=== PATIENT | female | born 1985 | race Caucasian/White ===

== ENCOUNTER → 2017-10-29 15:17 | Outpatient (CLI) | payer SELFPAY ==
[2017-10-29 18:23] LABS: Group B Strep DNA By PCR Negative (Negative); Internal Control PASS; Probe Check PASS; Specimen Processing Control PASS
== END ==
PROVIDERS: Visit Provider Obstetrics & Gynecology
DX: Z36.85 Encounter for antenatal screening for Streptococcus B (principal)
CPT/HCPCS: 87081; 87653

== ENCOUNTER 2017-11-18 22:28 | Inpatient (IN) | payer SELFPAY ==
[2017-11-18] MEDS: Lactated Ringers 1,000 ML 50 ML IV (22:52)
[2017-11-18 22:54] VITALS: BMI 23.8
[2017-11-18 23:33] LABS: Hematocrit 39.5 % (37-47); Hemoglobin 13.8 g/dl (12.0-15.0); Mean Corp Hgb Conc 34.9 g/gl (32-36); Mean Corpuscular Hgb 31.7 pg (27.0-32.0); Mean Corpuscular Volume 90.6 fL (81-99); Mean Platelet Vol. 10.1 fl (6.2-12.0); Platelet Count 193 K/mm3 (150-450); RBC Distribution Width CV 12.3 % (11.6-14.6); RBC Distribution Width SD 40.4 fl (35.1-43.9); Red Blood Count 4.36 M/mm3 (4.2-5.4); White Blood Count 12.9 K/mm3 (4.4-11.0)
[2017-11-18 23:37] LABS: Scan Indicated on CBC? Y/N NO
[2017-11-19] MEDS: Oxytocin 30 units/NS 500 ml 30 UNITS/500 ML IV.SOLN 334 UNITS IV (00:24)
--- NOTE | 2017-11-19 00:46 | PCM.OB.VAG ---
- Problem List (1) 39 weeks gestation of Status: Acute (2) (vaginal after ) Status: Acute Vaginal Delivery Maternal Presentation: Active Labor Amniotic Membrane Rupture Type: Spontaneous Rupture of Membrane time: 11/18/17 2322h Amniotic Fluid Description: Clear Final MALU: 11/22/17 Final MALU Source: [place] <20 weeks Gestational age: 39 Weeks and 4 Days Date of Procedure: 11/19/17 Pre-Operative Diagnosis: 39 4/7wga, labor, SGA Post-Operative Diagnosis: 39 4/7wga, labor, SGA Surgery/ Procedure Performed: Spontaneous Vaginal Delivery Type of Anesthesia: Local with 1% lidocaine, - - Nitrous oxide Description of Procedure: Patient was FD and pushed to deliver a vigorous male in OA. The infant was passed to the nursery personnel and further attended. The cord was doubly clamped and cut after 5-6 minutes of life. The placenta delivered spontaneously and appeared intact on inspection with 3VC. A second degree perineal laceration was repaired with 3-0 Vicryl Rapide. Presentation: Vertex Placental Delivery Description: Spontaneous Placenta Disposition: [facility] Cord Vessel Description: 3 Vessels Nuchal Cord Compression: Without compression Cord Entanglement: None Estimated Blood Loss: 350 Infant A gender: Male (1 minute): 8 (5 minute): 9 Episiotomy Description: None Laceration: Midline, Perineal Extension/lac, 2nd degree Medications given after delivery: IV Pitocin Complications: None
[2017-11-19] MEDS: Oxytocin 30 units/NS 500 ml 30 UNITS/500 ML IV.SOLN 167 UNITS IV (00:54)
--- NOTE | 2017-11-19 01:05 | DCINST_ITS ---
Discharge Diet: No Restrictions Discharge Activity: Return to Normal Activity May resume sexual activity in: 6 weeks Lifting Restrictions: 10-20lb Call your doctor if your incision/area has: Continuous Slow Oozing, Sudden Increased Bleeding, Increased Pain/ Swelling, Increased Redness, Foul Smelling Discharge Call your doctor if you observe: Fever of 101 or Higher, Inability to urinate, Inability to have a bowel movement, Using more than one pad per hour, Shortness of breath, Chest pain, Calf discomfort, Uncontrolled pain Suture Line Care: Avoid Pulling/Pushing Cleanse incision/area with: Soap & Water Additional Instructions: If you experience any of the following, contact your healthcare provider. * Bleeding that soaks a pad every hour for 2 hours * Fever 100.4 or higher * Unrelieved incision or abdominal pain * Swelling, redness, discharge or bleeding from your incision or episiotomy site * Your incision begins to separate * Problems urinating (including inability to urinate or burning while urinating) . * Visual changes * Severe headache * Flu-like symptoms * Pain or redness in one of both of your breasts * Pain, warmth, tenderness or swelling in your legs, especially the calf area * Frequent nausea and vomiting * Symptoms of depression or anxiety If you experience any of the following, call 911 or go to the nearest Emergency Room. * Chest pain * Problems breathing * Seizure activity * Partial or complete paralysis of a body part, slurred speech, weakness or drooping of the face, or a sudden inability to walk or hold your balance Allergies/Adverse Reactions: Allergies No Known Allergies Allergy (Verified 11/18/17 22:54) Medications to take at Discharge Vit No.130/Iron/FA [ Tablet] 1 tab PO DAILY 11/18/17 Docusate Sodium [Colace] 100 mg PO BID PRN PRN #60 cap 11/19/17 Ibuprofen 800 mg PO TID PRN #30 tab 11/19/17 The following prescriptions were given: Docusate Sodium [Colace] 100 mg PO BID PRN PRN #60 cap PRN Reason: Constipation Ibuprofen 800 mg PO TID PRN #30 tab PRN Reason: Pain Please Follow Up With: Nini Chirinos MD When: 6 weeks
[2017-11-19] MEDS: Ibuprofen 600 MG Tablet PO (01:47)
[2017-11-19] MEDS: 0.9% Saline Lock 10 ML Syringe IV (02:00)
[2017-11-19 03:45] VITALS: BP 118/75; PULSE 84; RESP 16; TEMP 36.9; O2SAT 99
[2017-11-19 08:00] VITALS: BP 104/63; PULSE 85; RESP 16; TEMP 37.1
[2017-11-19 12:00] VITALS: BP 112/65; PULSE 69; RESP 16; TEMP 37.3
[2017-11-19 15:55] VITALS: BP 114/67; PULSE 72; RESP 16; TEMP 37.2; O2SAT 99
[2017-11-19 20:15] VITALS: BP 103/65; PULSE 91; RESP 18; TEMP 37.2; O2SAT 99
[2017-11-20 01:35] VITALS: BP 100/62; PULSE 75; RESP 20; TEMP 37; O2SAT 96
--- NOTE | 2017-11-20 06:43 | PCM.PN.OB ---
Patient Problems: Active and Suspected Problems 39 weeks gestation of (Acute) (vaginal after ) (Acute) Subjective: PPD#1 Doing well. breast feeding well. relates events of delivery, quick delivery after presentation to hospital. GBS negative. Considering dischg home today as flu restrictions in place limit visitation. Objective: sitting up in bed nursing baby - Physical Exam General: Alert, Oriented x3, Cooperative, No apparent distress HEENT: Atraumatic Neck: Supple Abdomen: Soft - fundus firm NT at 2-3 cm inferior to umbilicus Extremities: No edema Psych/Mental Status: Normal Affect Vital Signs Temp Pulse Resp BP Pulse Ox 98.6 F 75 20 H 100/62 96 11/20/17 01:35 11/20/17 01:35 11/20/17 01:35 11/20/17 01:35 11/20/17 01:35 Oxygen Delivery Method Room Air Weight: 64.864 kg Body Mass Index (BMI) 23.8 Intake and Output for Last 24 Hours 11/18/17 11/19/17 11/20/17 23:59 23:59 23:59 Intake Total 1318 / 1318 Output Total 1700 / 1700 Balance -382 / -382 Assessment/Plan Active and Suspected Problems 39 weeks gestation of (Acute) (vaginal after ) (Acute) PPD#1 , Stable . Home today per pt request. Hold dischg if baby not released.
[2017-11-20] MEDS: Senna/Docusate Sodium 1 Tablet PO (08:26)
[2017-11-20 08:29] VITALS: BP 105/57; PULSE 73; RESP 18; TEMP 36.8; O2SAT 100
[2017-11-20 14:01] VITALS: BP 94/64; PULSE 64; RESP 16; TEMP 36.6; O2SAT 99
[2017-11-20 19:26] VITALS: BP 114/63; PULSE 76; RESP 16; TEMP 37; O2SAT 99
[2017-11-21 02:00] VITALS: BP 101/57; PULSE 72; RESP 18; TEMP 36.8; O2SAT 98
--- NOTE | 2017-11-21 07:36 | PCM.PN.OB ---
Patient Problems: Active and Suspected Problems 39 weeks gestation of (Acute) (vaginal after ) (Acute) Subjective: PPD#2 , . Doing well. No concerns voiced. - Physical Exam General: Alert, Oriented x3, Cooperative, No apparent distress HEENT: Atraumatic, PERRLA Neurological: Cranial nerves II-XII grossly intact Psych/Mental Status: Normal Affect Vital Signs Temp Pulse Resp BP Pulse Ox 98.2 F 72 18 101/57 L 98 11/21/17 02:00 11/21/17 02:00 11/21/17 02:00 11/21/17 02:00 11/21/17 02:00 Oxygen Delivery Method Room Air Weight: 64.864 kg Body Mass Index (BMI) 23.8 Intake and Output for Last 24 Hours 11/19/17 11/20/17 11/21/17 23:59 23:59 23:59 Intake Total 1318 / 1318 Output Total 1700 / 1700 Balance -382 / -382 Assessment/Plan Active and Suspected Problems 39 weeks gestation of (Acute) (vaginal after ) (Acute) PPD#2 , Stable . Home today
[2017-11-21 09:00] VITALS: BP 110/60; PULSE 97; RESP 16; TEMP 36.8; O2SAT 98
[2017-11-21] MEDS: Senna/Docusate Sodium 1 Tablet PO (09:21)
[2017-11-21 12:58] VITALS: BP 106/68; PULSE 70; RESP 16; TEMP 36.8; O2SAT 100
== END 2017-11-21 13:45 | disposition home or self-care (01) | DRG 775 ==
PROVIDERS: Admitting Provider Obstetrics & Gynecology; Visit Provider Obstetrics & Gynecology
DX: O34.219 Maternal care for unspecified type scar from previous cesarean delivery (principal); O36.5930 Maternal care for other known or suspected poor fetal growth, third trimester, not applicable or unspecified; Z37.0 Single live birth; Z3A.39 39 weeks gestation of pregnancy; O70.1 Second degree perineal laceration during delivery
CPT/HCPCS: 59025; 59050; 85027; 86850; 86900; 99218; J7120; A4216; G0378